=== PATIENT | female | born 1980 | race Caucasian/White ===

== ENCOUNTER 2021-02-04 16:19 | Emergency (ER) | payer SELFPAY ==
[~2021-02-04 16:19] MED LIST: AMOXICILLIN500 MG PO; AMOXICILLIN875 MG OR; CIPRO500 MG OR; FERR SULFATE325 MG PO; FERROUS SULF325 M1 PO; FISH OIL1000 MG PO; HEMAX PO; LORTAB 7.57.5 MG PO; MYCOSTATIN100000 MG EX; NO CURRENT MEDS; NO HOME MEDS; NYSTATIN100000 M3 TOP; PRENATA3 OR; PRENATAL1 TA1 PO; SPRINTEC 2828 DAY PO; TRIMOX500 MG PO; ULTRAM50 M1 OR; ULTRAM50 MG OR; VENTOLIN HFA IN; ZITHROMAX Z-PAK1 TAB PO
[2021-02-04] MEDS ORDERED: AMOXICILLIN875 MG PO (17:22)
[2021-02-04 17:32] VITALS: BP 132/58
== END 2021-02-04 17:45 | disposition home or self-care (01) | DRG 153 ==
LOC: ED 16:19
DX: J02.0 Streptococcal pharyngitis (principal); F17.210 Nicotine dependence, cigarettes, uncomplicated; Z20.822 Contact with and (suspected) exposure to COVID-19

== ENCOUNTER 2021-06-29 16:15 | Emergency (ER) | payer SELFPAY ==
[~2021-06-29] VITALS: Ht 157.5 cm; Wt 75.0 kg
[~2021-06-29 16:15] MED LIST changes: +AMOXICILLIN875 MG PO
[2021-06-29 20:52] VITALS: BP 115/69
== END 2021-06-29 20:52 | disposition home or self-care (01) | DRG 605 ==
LOC: ED 16:15
DX: S20.211A Contusion of right front wall of thorax, initial encounter (principal); S63.91XA Sprain of unspecified part of right wrist and hand, initial encounter; F17.200 Nicotine dependence, unspecified, uncomplicated; Y92.009 Unspecified place in unspecified non-institutional (private) residence as the place of occurrence of the external cause; W01.0XXA Fall on same level from slipping, tripping and stumbling without subsequent striking against object, initial encounter

== ENCOUNTER 2022-06-16 01:20 | Emergency (ER) | payer SELFPAY ==
[~2022-06-16] VITALS: Ht 157.5 cm; Wt 77.2 kg
[2022-06-16 01:45] VITALS: BP 121/55
[2022-06-16 02:00] VITALS: BP 113/68
[2022-06-16 02:15] VITALS: BP 113/64
== END 2022-06-16 02:25 | disposition home or self-care (01) | DRG 179 ==
LOC: ED 01:20
DX: U07.1 COVID-19 (principal); R09.81 Nasal congestion; R05.9 Cough, unspecified; R50.9 Fever, unspecified; R52 Pain, unspecified; R51.9 Headache, unspecified; J02.9 Acute pharyngitis, unspecified; F17.200 Nicotine dependence, unspecified, uncomplicated

== ENCOUNTER 2022-11-19 00:40 | Emergency (ER) | payer SELFPAY ==
[~2022-11-19] VITALS: Ht 157.5 cm; Wt 78.0 kg
[2022-11-19 00:54] VITALS: BP 116/68
[2022-11-19 01:00] VITALS: BP 106/69
[2022-11-19 01:16] VITALS: BP 108/53
[2022-11-19 01:19] LABS: BASO% 0.7 % (0-3); EOS% 2.5 % (0-8); HEMATOCRIT 31.6 % (37.0-47.0); HEMOGLOBIN 9.4 g/dl (12.0-16.0); IMMATURE GRANULOCYTES 0.2 % (0.0-5.0); MEAN CORPUSCULAR HGB 23.6 pG CALC (26.0-32.0); MEAN CORPUSCULAR HGB CONC 29.7 g/dL CAL (32.0-36.0); MONO% 9.4 % (2-13); NEUT# 3.22 thou/uL (2.00-7.15); NEUT% 54.2 % (42-76); RED BLOOD COUNT 3.98 mill/uL (4.20-5.60); RED CELL DISTRI WIDTH 16.9 % (11.5-15.5)
[2022-11-19 01:21] LABS: URINE BILIRUBIN - DIPSTICK NEGATIVE (NEGATIVE); URINE BLOOD DIPSTICK MODERATE (NEGATIVE); URINE COLOR YELLOW; URINE GLUCOSE - DIPSTICK NEGATIVE (NEGATIVE); URINE KETONE NEGATIVE (NEGATIVE); URINE LEUK ESTERASE NEGATIVE (NEGATIVE); URINE PH 5.5 (4.5-8.0); URINE PROTEIN - DIPSTICK TRACE mg/dL (NEG-TRACE); URINE SPECIFIC GRAVITY >=1.030
[2022-11-19 01:28] LABS: ALKALINE PHOSPHATASE 161 u/l (38-126); ANION GAP 12 (6-22 (CALC)); BILIRUBIN, TOTAL 0.4 mg/dL (0.02-1.3); BUN 18 mg/dL (7-17); BUN/CREATININE RATIO 21 (12-20 (CALC)); CARBON DIOXIDE 25 mmol/l (22-30); CHLORIDE 103 mmol/l (95-108); CREATININE 0.9 mg/dL (0.5-1.0); GFR FOR AFR.AMER. > 60 ML/MIN (>=60 (CALC)); GFR OTHER RACES > 60 ML/MIN (>=60 (CALC)); LIPASE 83 u/l (23-300); POTASSIUM 3.2 mmol/l (3.5-5.1); SODIUM 137 mmol/l (137-146)
[2022-11-19 01:29] LABS: URINE NITRITE - DIPSTICK POSITIVE (Negative)
[2022-11-19 01:29] LABS: ALBUMIN 4.1 g/dL (3.2-5.0); MEAN CELL VOLUME 79.4 fL CALC (80.0-100.0); SGOT/AST 43 u/l (14-36); TOTAL PROTEIN 8.6 g/dL (6.3-8.2)
[2022-11-19 01:30] VITALS: BP 121/72
[2022-11-19 01:31] LABS: URINE BACTERIA MANY hpf; URINE MUCUS FEW hpf (NONE-FEW); URINE SQUAMOUS EPITHELIAL CELL FEW EPI/hpf (0-FEW); URINE TRICHOMONAS MODERATE hpf
[2022-11-19 01:45] VITALS: BP 105/59
[2022-11-19] MEDS ORDERED: METRONIDAZO1 PO (03:10)
[2022-11-19] MEDS ORDERED: KEFLEX500 MG PO (03:10)
[2022-11-19 04:02] VITALS: BP 110/62
== END 2022-11-19 04:37 | disposition home or self-care (01) | DRG 759 ==
LOC: ED 00:40
PROVIDERS: Emergency Medicine
DX: A59.00 Urogenital trichomoniasis, unspecified (principal); N39.0 Urinary tract infection, site not specified; B96.20 Unspecified Escherichia coli [E. coli] as the cause of diseases classified elsewhere; F17.200 Nicotine dependence, unspecified, uncomplicated

== ENCOUNTER 2022-12-14 18:33 | Emergency (ER) | payer SELFPAY ==
[~2022-12-14] VITALS: Ht 157.5 cm; Wt 61.0 kg
[~2022-12-14 18:33] MED LIST changes: +KEFLEX500 MG PO; +METRONIDAZO1 PO
[2022-12-14 18:42] VITALS: BP 126/79
[2022-12-14 19:01] VITALS: BP 92/43
[2022-12-14 19:08] VITALS: BP 105/51
[2022-12-14 19:15] LABS: BASO% 0.3 % (0-3); EOS% 2.4 % (0-8); HEMATOCRIT 28.6 % (37.0-47.0); HEMOGLOBIN 8.8 g/dl (12.0-16.0); IMMATURE GRANULOCYTES 0.1 % (0.0-5.0); MEAN CELL VOLUME 77.3 fL CALC (80.0-100.0); MEAN CORPUSCULAR HGB 23.8 pG CALC (26.0-32.0); MEAN CORPUSCULAR HGB CONC 30.8 g/dL CAL (32.0-36.0); MONO% 6.5 % (2-13); NEUT# 5.17 thou/uL (2.00-7.15); NEUT% 69.7 % (42-76); RED BLOOD COUNT 3.7 mill/uL (4.20-5.60); RED CELL DISTRI WIDTH 17.1 % (11.5-15.5)
[2022-12-14 19:17] LABS: URINE BILIRUBIN - DIPSTICK NEGATIVE (NEGATIVE); URINE BLOOD DIPSTICK LARGE (NEGATIVE); URINE COLOR YELLOW; URINE GLUCOSE - DIPSTICK NEGATIVE (NEGATIVE); URINE KETONE TRACE mg/dL (NEGATIVE); URINE LEUK ESTERASE TRACE (NEGATIVE); URINE PROTEIN - DIPSTICK 30 mg/dL (NEG-TRACE); URINE SPECIFIC GRAVITY 1.025
[2022-12-14 19:20] LABS: URINE NITRITE - DIPSTICK NEGATIVE (Negative)
[2022-12-14 19:25] LABS: ALBUMIN 4.2 g/dL (3.2-5.0); ALKALINE PHOSPHATASE 97 u/l (38-126); ANION GAP 13 (6-22 (CALC)); BUN 16 mg/dL (7-17); BUN/CREATININE RATIO 27 (12-20 (CALC)); CARBON DIOXIDE 24 mmol/l (22-30); CHLORIDE 107 mmol/l (95-108); CREATININE 0.6 mg/dL (0.5-1.0); GFR FOR AFR.AMER. > 60 ML/MIN (>=60 (CALC)); GFR OTHER RACES > 60 ML/MIN (>=60 (CALC)); POTASSIUM 2.8 mmol/l (3.5-5.1); SGOT/AST 31 u/l (14-36); SODIUM 142 mmol/l (137-146); TOTAL PROTEIN 7.8 g/dL (6.3-8.2)
[2022-12-14 19:26] LABS: BILIRUBIN, TOTAL 0.2 mg/dL (0.02-1.3)
[2022-12-14 19:29] LABS: URINE BACTERIA MODERATE hpf; URINE MUCUS FEW hpf (NONE-FEW); URINE RBC 25-50 RBC/hpf (0-5); URINE SQUAMOUS EPITHELIAL CELL FEW EPI/hpf (0-FEW)
[2022-12-14] MEDS ORDERED: KEFLEX500 MG PO (20:24)
[2022-12-14] MEDS ORDERED: POTASSIUM CHLO20 ME1 PO (20:24)
[2022-12-14] MEDS ORDERED: TRAMADOL HCL50 MG PO (20:24)
[2022-12-14] MEDS ORDERED: PROMETHAZINE HY25 M1 PO (20:25)
[2022-12-14 22:22] VITALS: BP 105/51
== END 2022-12-14 22:22 | disposition home or self-care (01) | DRG 690 ==
LOC: ED 18:33
PROVIDERS: Family Medicine
DX: N39.0 Urinary tract infection, site not specified (principal); B95.2 Enterococcus as the cause of diseases classified elsewhere; E87.6 Hypokalemia; D25.9 Leiomyoma of uterus, unspecified; N94.6 Dysmenorrhea, unspecified; F17.200 Nicotine dependence, unspecified, uncomplicated
CPT/HCPCS: Q9967

== ENCOUNTER 2024-03-18 18:34 | Emergency (ER) | payer OTHER ==
[~2024-03-18] VITALS: Ht 157.5 cm; Wt 72.6 kg
[~2024-03-18 18:34] MED LIST changes: +METHOCARBAMOL500 MG PO; +NAPROXEN500 MG PO; +POTASSIUM CHLO20 ME1 PO; +PREDNISONE10 MG PO; +PROMETHAZINE HY25 M1 PO; +TRAMADOL HCL50 MG PO
[2024-03-18 19:04] VITALS: BP 118/42
[2024-03-18] MEDS ORDERED: CEPHALEXIN MONOHYDRATE 500 MG/CAP PO ONE (19:15)
[2024-03-18] MEDS ORDERED: KEFLEX500 MG PO (19:19)
[2024-03-18 19:31] VITALS: BP 118/42
== END 2024-03-18 19:34 | disposition home or self-care (01) | DRG 603 ==
LOC: ED 18:34
DX: L03.319 Cellulitis of trunk, unspecified (principal); F17.200 Nicotine dependence, unspecified, uncomplicated

== ENCOUNTER 2024-03-25 00:18 | Emergency (ER) | payer OTHER ==
[~2024-03-25] VITALS: Ht 157.5 cm; Wt 68.0 kg
[2024-03-25] MEDS ORDERED: CLINDAMYCIN HY300 MG PO (01:30)
[2024-03-25 01:47] VITALS: BP 116/67
[2024-03-28] MEDS ORDERED: DOXYCYCLINE HY100 MG PO (10:43)
== END 2024-03-25 01:47 | disposition home or self-care (01) | DRG 603 ==
LOC: ED 00:18
PROC: 0H97XZZ Drainage of Abdomen Skin, External Approach (ICD-10-PCS; principal; 2024-03-25)
DX: L02.211 Cutaneous abscess of abdominal wall (principal); L03.311 Cellulitis of abdominal wall; B95.62 Methicillin resistant Staphylococcus aureus infection as the cause of diseases classified elsewhere; F17.200 Nicotine dependence, unspecified, uncomplicated